=== PATIENT | female | born 1990 | race Hispanic/Latino ===

== ENCOUNTER 2025-08-17 17:25 | Emergency (ER) | payer BC ==
[2025-08-17] MEDS ORDERED: Acetaminophen 500 MG TAB ONE (18:29)
[2025-08-17 19:00] LABS: Pregnancy Test - Urine (BHCG) Negative (Negative); Pregu Control Background? CLEAR/WHITE (CLR/WHITE); Pregu Control Bar Appear? YES (CONTROL BAR)
== END 2025-08-17 19:50 | disposition home or self-care (01) ==
LOC: MADERS 17:25
DX: S60.222A Contusion of left hand, initial encounter (principal); V44.5XXA Car driver injured in collision with heavy transport vehicle or bus in traffic accident, initial encounter; Y92.410 Unspecified street and highway as the place of occurrence of the external cause
CPT/HCPCS: 81025; 99284